=== PATIENT | male | born 1990 | race Hispanic/Latino ===

== ENCOUNTER 2023-09-07 09:24 | Emergency (ER) | payer MEDICAID ==
[~2023-09-07] VITALS: Ht 182.9 cm; Wt 68.0 kg
[2023-09-07 09:27] VITALS: BP 134/78; PULSE 74; RESP 16; O2SAT 98
[2023-09-07] MEDS ORDERED: GUAIFENESIN 600 MG TABLET.ER PO ONE (10:00)
[2023-09-07] MEDS ORDERED: ACETAMINOPHEN 500 MG TABLET PO ONE (10:00)
[2023-09-07] MEDS ORDERED: BENZONATATE 100 MG CAPSULE PO ONE (10:00)
[2023-09-07 10:14] LABS: SARS-CoV-2, RNA, NAAT NEGATIVE SARS CoV-2 (NEGATIVE)
[2023-09-07 10:19] LABS: RAPID GROUP A STREP negative (NEGATIVE)
[2023-09-07 10:23] LABS: INFLUENZA TYPE A Negative For Type A (NEGATIVE); INFLUENZA TYPE B Negative For Type B (NEGATIVE)
[2023-09-07] MEDS ORDERED: BROM118S48 PO (10:52)
[2023-09-07] MEDS ORDERED: AZIT250T PO (10:52)
== END 2023-09-07 11:01 | disposition home or self-care (01) ==
LOC: EDH 09:24
DX: J06.9 Acute upper respiratory infection, unspecified (principal); M79.10 Myalgia, unspecified site; R51.9 Headache, unspecified; Z20.822 Contact with and (suspected) exposure to COVID-19; Z79.899 Other long term (current) drug therapy
CPT/HCPCS: 99284; 71045; 87635; 87880; 87804 ×2; C9803